=== PATIENT | male | born 1975 | race Caucasian/White ===

== ENCOUNTER → 2016-09-13 | Outpatient (CLI) | payer OTHER ==
--- NOTE | 2016-09-13 17:32 | DX ---
PA and lateral chest. 09/13/2016. Clinical History: Cough. Fever. Comparison Study: None available. Findings: Patchy infiltrates are present in the lower lobes bilaterally compatible with bilateral bro nchopneumonia. Heart size is normal. No pleural effusion.. Visualized osseous structures appear normal. Impression: Bilateral lower lobe bronchopneumonia.
== END ==
LOC: BRMIMAGING 17:03
PROVIDERS: ATTEND Physician Assistant Medical
DX: J18.0 Bronchopneumonia, unspecified organism (principal)
CPT/HCPCS: 71020-PO

== ENCOUNTER → 2016-09-28 | Outpatient (CLI) | payer OTHER | LOC: BRMIMAGING 08:19 | PROVIDERS: ATTEND Physician Assistant Medical | DX: Z09 Encounter for follow-up examination after completed treatment for conditions other than malignant neoplasm (principal) | CPT/HCPCS: 71020-PO ==